=== PATIENT | female | born 1975 | race Caucasian/White ===

== ENCOUNTER 2019-04-01 19:12 | Emergency (ER) | payer OTHER, SELFPAY ==
[2019-04-01 19:14] VITALS: BP 136/72; PULSE 89; RESP 18; TEMP 36.3; O2SAT 95; BMI 30.2
--- NOTE | 2019-04-01 19:34 | RAD_ITS ---
STUDY: X-RAY - THORACIC SPINE REASON FOR EXAM: Female, 43 years old. Pain, radiculopathy TECHNIQUE: 3 view(s) of the thoracic spine were obtained. COMPARISON: None. FINDINGS: There is mild kyphosis of the upper thoracic spine. There is no substantial scoliosis. There is multilevel spondylosis. There is slight loss of height in the upper thoracic vertebral bodies. There is no evidence of acute loss of height or alignment. Normal disc space heights. The soft tissue structures are unremarkable. RAD/Thoracic Spine 2 Views IMPRESSION: Degenerative change. No visualized evidence of an acute fracture. Electronically Signed: Brionna Rockwell MD at 20:03 EDT Tel , Service support ,
--- NOTE | 2019-04-01 19:35 | ED.VIS.GEN ---
History of Present Illness Chief Complaint: Upper Extremity Injury Detail of Chief Complaint: Right arm pain, numbness, tingling Informant: Patient Onset: Weeks Context: Gradual Onset Current Severity: Moderate Maximum Severity: Moderate Narrative: Patient presents with pain around the right scapula and down the right arm for the last 6 weeks. It has been progressive. She has numbness and tingling. She is right-hand dominant. She had been going to the chiropractor and datatracker, but is not making progress. She is taking Tylenol and ibuprofen [id number]. She was scheduled to see a new primary care physician tomorrow for intake, but her appointment was canceled. Past Medical History - Allergies and Home Meds Allergies/Adverse Reactions: Allergies No Known Allergies Allergy (Verified 04/01/19 19:28) Primary Care Physician: Vasiliy Lewis MD [STAFF PHYSICIAN] - As soon as possible Prior records reviewed: Yes Past Medical History: - - Reviewed Lives: Spouse/ Significant Other Smoking Status: Current every day smoker Review of Systems General: Denies: Chills, Fever Eyes: Denies: Visual changes - bilaterally ENT: Denies: Bilateral ear pain Cardiovascular: Denies: Chest pain Respiratory: Denies: Dyspnea Musculoskeletal: Reports: Arthralgias, Neck pain, Back pain, Extremity Pain Skin: Denies: Wounds Neurological: Reports: Weakness, Parasthesia, Numbness Hematologic: Denies: Easy bruising, Easy bleeding Allergy: Denies: Uticaria Physical Exam Vital Signs/Narrative: Vital Signs Temp Pulse Resp BP Pulse Ox 04/01/19 19:14 97.3 F L 89 18 136/72 H 95 Inital Vital Signs reviewed: Yes General: Well nourished, Well developed ENT: Moist mucous membranes Cardiovascular: Regular rate, Regular rhythm Respiratory: No distress, CTA bilaterally Abdomen: Soft, Nontender Back: - - Tenderness palpation over the thoracic paraspinals on the right and across the scapula. Palpable spasm is noted. Extremities: - - Mild muscular tenderness around the right shoulder. She has decreased range of motion and strength secondary to pain. Strong distal pulses are noted with normal cap refill. She reports decreased sensation to light touch. Skin: Normal color, Rash Neurological: Alert Psychological: Normal affect Diagnostic/Tx/Re-eval Impressions Thoracic Spine X-Ray 04/01/19 19:34 IMPRESSION: Degenerative change. No visualized evidence of an acute fracture. Electronically Signed: Brionna Rockwell MD at 20:03 EDT Tel , Service support , Cervical Spine X-Ray 04/01/19 19:47 IMPRESSION: Degenerative disc disease. No significant C5-C6. No apparent acute loss of height or alignment. Electronically Signed: Brionna Rockwell MD at 20:05 EDT Tel , Service support , 04/01/19 19:34 Thoracic Spine 2 Views [RAD] Stat 04/01/19 19:47 Xray Cervical [Cerv Spine 2 or 3 Views] [RAD] Stat - Medical Decision Making Patient declined [place]. She was given a p.o. dose of Valium. On repeat evaluation she states the muscles are starting to relax and feeling better. She wishes to continue her Tylenol and ibuprofen at home. She will be given a prescription for Valium to help with muscle spasm. She will follow-up with her PCP. ED Disposition - Plan for ED Patient: Disposition: Home or Assisted Living Diagnosis: Muscle spasm Instructions: Muscle Spasm, RADICULOPATHY, Cervical Prescriptions: Diazepam [Valium] 5 mg PO Q8 PRN #20 tab PRN Reason: Muscle Spasm Prescription Printed Referrals: Vasiliy Lewis MD [STAFF PHYSICIAN] - As soon as possible
[2019-04-01] MEDS: diazePAM 5 MG Tablet PO (19:39)
--- NOTE | 2019-04-01 19:47 | RAD_ITS ---
STUDY: X-RAY - CERVICAL SPINE REASON FOR EXAM: Female, 43 years old. Pain, Right arm radiculopathy TECHNIQUE: 3 view(s) of the cervical spine were obtained. COMPARISON: None FINDINGS: There are degenerative changes of the anterior atlantoaxial articulation. Normal odontoid process. Normal cervical lordosis. There is spondylosis C4-C5 C5-C6 C6-C7 . The C5-C6 there is disc space narrowing. Normal visualized intervertebral neuroforamina. The soft tissue structures are unremarkable. RAD/Cerv Spine 2 or 3 Views IMPRESSION: Degenerative disc disease. No significant C5-C6. No apparent acute loss of height or alignment. Electronically Signed: Brionna Rockwell MD at 20:05 EDT Tel , Service support ,
[2019-04-01 21:18] VITALS: BP 121/83; PULSE 70; PULSE 76; RESP 18; O2SAT 95
== END 2019-04-01 21:20 | disposition home or self-care (01) ==
PROVIDERS: Emergency Provider Emergency Medicine
DX: M62.838 Other muscle spasm (principal); F17.200 Nicotine dependence, unspecified, uncomplicated
CPT/HCPCS: 72040; 72070; 99283

== ENCOUNTER → 2019-04-08 11:56 | Outpatient (CLI) | payer OTHER, SELFPAY ==
[2019-04-01 19:14] VITALS: BMI 30.2
--- NOTE | 2019-04-08 12:03 | RAD_ITS ---
STUDY: X-RAY - RIGHT SHOULDER REASON FOR EXAM: Female, 43 years old. Denies injury pain and tenderness TECHNIQUE: 4 view(s) of the shoulder. COMPARISON: None. FINDINGS: Normal glenohumeral articulation. Normal acromioclavicular joint. Normal acromion. Normal humeral head and visualized proximal humerus. The soft tissue structures are unremarkable. Allowing for this technique. Visualize right midlung zone linear density or atelectasis versus scarring. RAD/Shoulder min 2 Views IMPRESSION: Normal x-ray examination of the shoulder. Electronically Signed: Brionna Rockwell MD at 17:23 EDT Tel , Service support ,
== END ==
PROVIDERS: Family Provider Family Medicine; PCP Family Medicine; Referring Provider Family Medicine; Visit Provider Family Medicine
DX: M25.511 Pain in right shoulder (principal)
CPT/HCPCS: 73030

== ENCOUNTER → 2019-04-17 07:17 | Outpatient (CLI) | payer OTHER, SELFPAY ==
[2019-04-01 19:14] VITALS: BMI 30.2
--- NOTE | 2019-04-17 10:40 | NEURO ---
NCS and/or EMG Patient Report Ordering Doctor: Vasiliy Lewis DATE OF SERVICE: 04/17/19 This is a right upper extremity nerve conduction study performed on this 43-year-old female who is right-handed and has had symptoms primarily affecting her right shoulder for the past 3 to 4 months progressively worse. She reports that she has had numbness down her arm and into her hand but she is unable to specify which fingers, resolved with gabapentin however she continues to have pain in her shoulder described as pain in her triceps, biceps and trapezius with pain on palpation in her right shoulder which duplicates the pain. She denies neck pain otherwise and is healthy without a history of diabetes. The patient is severely averse to needles and defers needle electromyography. Right upper extremity nerve conduction study is performed demonstrating very mild prolongation of the median motor and sensory distal latencies with preservation of amplitude and conduction velocities. The ulnar motor and sensory and radial sensory responses are normal. The median and ulnar F-wave latencies are normal. Impression there is evidence of very mild carpal tunnel syndrome at the wrist however this likely does not reach clinical significance. Based on duplication of symptoms with manipulation of the shoulder, further evaluation for shoulder joint normalities is recommended. The patient deferred to EMG testing. Dictated using [employer] software not proofread
== END ==
PROVIDERS: Family Provider Family Medicine; PCP Family Medicine; Referring Provider Family Medicine; Visit Provider Family Medicine
DX: R20.2 Paresthesia of skin (principal)
CPT/HCPCS: 95909